=== PATIENT | female | born 1980 | race Caucasian/White ===

== ENCOUNTER → 2016-09-29 | Outpatient (CLI) | payer OTHER | END | disposition disaster alternative care site (69) | LOC: GLAB 09:54 | DX: E06.3 Autoimmune thyroiditis (principal) ==

== ENCOUNTER → 2016-10-19 | Outpatient (CLI) | payer OTHER ==
[2016-10-19 08:19] LABS: BASOPHIL % 0.3 %; EOSINOPHIL # 0.2 K/uL (0.0-0.5); EOSINOPHIL % 6.2 %; HEMOGLOBIN 13.4 g/dL (11.0-15.0); IMMATURE GRANULOCYTE % 0.3 %; LYMPHOCYTE # 1.5 K/uL (0.8-4.0); LYMPHOCYTE % 38.8 %; MCH 31.7 pg (27.0-34.0); MCHC 33.5 gm/dL (32.0-36.5); MCV 94.6 fl (83.0-98.0); MONOCYTE # 0.5 K/uL (0.0-1.0); MONOCYTE % 11.6 %; MPV 10.6 fl (9.4-12.4); NEUTROPHIL # (ANC) 1.7 K/uL (1.8-7.8); NEUTROPHIL % 42.8 %; NRBC % 0 /100WBC (0-0.00); PLATELET COUNT 183 K/uL (150-450); RBC 4.23 M/uL (3.50-5.50); RDW-CV 12.5 % (11.9-14.6); WBC 3.9 K/uL (4.0-11.0)
[2016-10-19 08:33] LABS: ALBUMIN 4.1 gm/dL (3.5-5.0); ALK PHOS 58 IU/L (33-138); ALT 21 IU/L (12-78); ANION GAP 9.1 (10.0-19.0); AST 14 IU/L (10-40); BLOOD UREA NITROGEN 13 mg/dL (6-24); CALCIUM 9.2 mg/dL (8.5-10.5); CHLORIDE 104 mMol/L (96-110); CO2 31 mMol/L (22-32); CREATININE 0.8 mg/dL (0.5-1.1); ESTIMATED GFR (MDRD EQUATION) > 60; POTASSIUM 4.1 mMol/L (3.7-5.1); SODIUM 140 mMol/L (135-145); TOTAL BILIRUBIN 1.9 mg/dL (0.0-1.5); TOTAL PROTEIN 7.9 g/dL (6.0-8.4)
== END | disposition disaster alternative care site (69) ==
LOC: GLAB 08:04
PROVIDERS: Internal Medicine
DX: Z51.81 Encounter for therapeutic drug level monitoring (principal); Z79.899 Other long term (current) drug therapy